=== PATIENT | male | born 1945 | race Caucasian/White ===

== ENCOUNTER 2017-07-26 11:59 | Emergency (ER) | payer MEDICARE, MEDICAID ==
[~2017-07-26] VITALS: Ht 167.6 cm; Wt 63.6 kg
[~2017-07-26 11:59] MED LIST: ALBU18HF2 INH; ALBU8.5H8 IH; ASPI-1265 PO; ATOR20TA66 PO; AZIT250T27 PO; BECL8.7A7 INH; CEFP100T7 PO; FLUT1DIS4 INH; HYDR12.5 PO; LEVE250T4 PO; METH4TAB3 PO; MULT-1179 PO; NYSPWD TP; TRAZ-143 PO
[2017-07-26] MEDS ORDERED: ipratropium/albuterol 3ml nebule NEB ONE (13:15)
[2017-07-26] MEDS ORDERED: albuterol 2.5 MG/3 ML nebule NEB ONE (13:15)
[2017-07-26 14:12] LABS: BASOPHILS % (AUTO) 0.5 % (0-1); EOSINOPHILS # (AUTO) 0.2 X10'3 (0-0.9); EOSINOPHILS % (AUTO) 3.3 % (0-6); HEMATOCRIT 44.3 % (42.0-52.0); LYMPHOCYTES # (AUTO) 0.8 X10'3 (1.1-4.8); LYMPHOCYTES % (AUTO) 14.3 % (21-51); MEAN CORPUSCULAR HEMOGLOBIN 31.3 PG (27.0-31.0); MEAN CORPUSCULAR HGB CONC 33.8 % (33.0-36.5); MEAN CORPUSCULAR VOLUME 92.5 FL (78-98); MEAN PLATELET VOLUME 7.9 FL (7.4-10.4); MONOCYTES # (AUTO) 0.3 X10'3 (0-0.9); MONOCYTES % (AUTO) 5.3 % (2-12); NEUTROPHILS # (AUTO) 4.1 X10'3 (1.8-7.7); NEUTROPHILS % (AUTO) 76.6 % (42-75); PLATELET COUNT 116 X10'3 (140-440); RED BLOOD COUNT 4.79 X10'6 (4.70-6.10); RED CELL DISTRIBUTION WIDTH 14.9 % (11.5-14.5); WHITE BLOOD COUNT 5.3 X10'3 (4.5-11.0)
[2017-07-26 14:26] LABS: ALANINE AMINOTRANSFERASE 25 U/L (12-78); ALBUMIN 3.9 G/DL (3.4-5.0); ALBUMIN/GLOBULIN RATIO 1.3 (1.1-1.5); ALKALINE PHOSPHATASE 90 IU/L (46-116); ANION GAP 9 (8-16); ASPARTATE AMINO TRANSFERASE 28 U/L (10-37); BILIRUBIN,TOTAL 0.6 MG/DL (0.1-1.0); BLOOD UREA NITROGEN 11 MG/DL (7-18); BUN/CREATININE RATIO 28.9 (5.4-32.0); CHLORIDE 99 MMOL/L (99-107); CREATININE 0.38 MG/DL (0.60-1.10); ETHANOL 0.072 GM/DL (0.0-0.010); GLUCOSE 82 MG/DL (70-104); POTASSIUM 3.6 MMOL/L (3.5-5.1); SODIUM 138 MMOL/L (135-145); TOTAL CARBON DIOXIDE 30.3 MMOL/L (24-32); TOTAL PROTEIN 6.8 G/DL (6.4-8.2); eGFR > 90 ML/MIN
[2017-07-26 15:31] VITALS: BP 119/63
== END 2017-07-26 15:32 | disposition home or self-care (01) ==
LOC: ER 12:00
DX: G40.909 Epilepsy, unspecified, not intractable, without status epilepticus (principal); J44.9 Chronic obstructive pulmonary disease, unspecified; G89.29 Other chronic pain; I25.10 Atherosclerotic heart disease of native coronary artery without angina pectoris; I10 Essential (primary) hypertension; F17.200 Nicotine dependence, unspecified, uncomplicated; Z79.82 Long term (current) use of aspirin; Z79.899 Other long term (current) drug therapy
CPT/HCPCS: 36415; 70450; 71010; 80053; 80320; 85025; 94640; 99285; J7030; A4620

== ENCOUNTER 2017-11-16 21:20 | Inpatient (IN) | payer MEDICARE, MEDICAID ==
[~2017-11-16] VITALS: Ht 167.6 cm; Wt 63.0 kg
[2017-11-16] MEDS ORDERED: methylPREDNISolone sod succ 125mg/2ml vial IV ONE (21:35)
[2017-11-16 21:58] LABS: BASOPHILS % (AUTO) 0.1 % (0-1); EOSINOPHILS # (AUTO) 0.4 X10'3 (0-0.9); EOSINOPHILS % (AUTO) 6.3 % (0-6); HEMATOCRIT 43.3 % (42.0-52.0); HEMOGLOBIN 14.9 g/dl (14.0-17.9); LYMPHOCYTES # (AUTO) 0.7 X10'3 (1.1-4.8); LYMPHOCYTES % (AUTO) 10.5 % (21-51); MEAN CORPUSCULAR HEMOGLOBIN 31.6 PG (27.0-31.0); MEAN CORPUSCULAR HGB CONC 34.5 % (33.0-36.5); MEAN CORPUSCULAR VOLUME 91.5 FL (78-98); MEAN PLATELET VOLUME 8.3 FL (7.4-10.4); MONOCYTES # (AUTO) 0.3 X10'3 (0-0.9); MONOCYTES % (AUTO) 5.2 % (2-12); NEUTROPHILS # (AUTO) 4.8 X10'3 (1.8-7.7); NEUTROPHILS % (AUTO) 77.9 % (42-75); PLATELET COUNT 173 X10'3 (140-440); RED BLOOD COUNT 4.73 X10'6 (4.70-6.10); RED CELL DISTRIBUTION WIDTH 14.1 % (11.5-14.5); WHITE BLOOD COUNT 6.2 X10'3 (4.5-11.0)
[2017-11-16] MEDS ORDERED: albuterol 2.5 MG/3 ML nebule CONTNEB PRN (22:00)
[2017-11-16 22:10] LABS: INR 1.1 INR; PARTIAL THROMBOPLASTIN TIME 28 SECONDS (22-32); PROTHROMBIN TIME 11.2 SECONDS (9.0-12.0)
[2017-11-16 22:21] LABS: ALANINE AMINOTRANSFERASE 21 U/L (12-78); ALBUMIN 3.7 G/DL (3.4-5.0); ALBUMIN/GLOBULIN RATIO 1.1 (1.1-1.5); ALKALINE PHOSPHATASE 154 IU/L (46-116); ANION GAP 14 (8-16); BILIRUBIN,TOTAL 1.7 MG/DL (0.1-1.0); BLOOD UREA NITROGEN 10 MG/DL (7-18); BUN/CREATININE RATIO 18.5 (5.4-32.0); CALCIUM 9.2 MG/DL (8.5-10.1); CHLORIDE 93 MMOL/L (99-107); CREATININE 0.54 MG/DL (0.60-1.10); GLUCOSE 79 MG/DL (70-104); MAGNESIUM 1.6 MG/DL (1.5-2.4); SODIUM 133 MMOL/L (135-145); TOTAL CARBON DIOXIDE 25.7 MMOL/L (24-32); TOTAL PROTEIN 7.2 G/DL (6.4-8.2); eGFR > 90 ML/MIN
[2017-11-16 22:25] LABS: POTASSIUM 4.4 MMOL/L (3.5-5.1)
[2017-11-16 22:44] LABS: ASPARTATE AMINO TRANSFERASE 64 U/L (10-37); CREATINE KINASE 118 U/L (39-308)
[2017-11-16] MEDS ORDERED: levoFLOXACIN-Levaquin 500mg/D5 100 ML IV ONE (23:20)
[2017-11-16] MEDS ORDERED: HYDROcodone/acetaminophen 5mg/325mg tablet PO ONE (23:35)
[2017-11-17] MEDS ORDERED: morphine 4 MG/ML inj SYRINge IV PRN ×2 (02:30)
[2017-11-17] MEDS ORDERED: metoclopramide 5 mg/ml inj IV PRN (02:30)
[2017-11-17] MEDS ORDERED: HYDROcodone/acetaminophen 5mg/325mg tablet PO PRN (02:30)
[2017-11-17] MEDS ORDERED: ondansetron/PF 4mg/2ml inj IV PRN (02:30)
[2017-11-17] MEDS ORDERED: HYDROmorphone inj. 0.5 MG/0.5 ML DISP.SYRIN IV PRN ×2 (02:30)
[2017-11-17] MEDS ORDERED: mag hydrox/Alum hydrox/simeth 30ml oral suspension PO PRN (02:30)
[2017-11-17] MEDS ORDERED: magnesium hydroxide 30ml (MOM) UD suspension PO PRN (02:30)
[2017-11-17] MEDS ORDERED: diphenhydrAMINE 25mg capsule PO PRN (02:30)
[2017-11-17] MEDS ORDERED: acetaminophen 325mg tablet PO PRN (02:30)
[2017-11-17] MEDS ORDERED: diphenhydrAMINE 50 mg/ml inj IV PRN (02:30)
[2017-11-17] MEDS ORDERED: acetaminophen 650mg rectal suppository RC PRN (02:30)
[2017-11-17] MEDS ORDERED: traZODone 50mg tablet PO PRN (02:35)
[2017-11-17] MEDS ORDERED: non-formulary drug (Albuterol Sulfate (Ventolin Hfa) 2 PUFFS) INH SCH (02:35)
[2017-11-17] MEDS ORDERED: albuterol 2.5 MG/3 ML nebule NEB PRN (02:50)
[2017-11-17] MEDS: normal saline 1000ml 1,000 ML IV SCH ×2 (03:05→13:31)
[2017-11-17 03:45] LABS: D-DIMER 2.73 MG/L FEU (0-0.50)
[2017-11-17 03:49] LABS: MAGNESIUM 1.7 MG/DL (1.5-2.4); PHOSPHORUS 3.7 MG/DL (2.3-4.5)
[2017-11-17] MEDS ORDERED: dextrose ORAL solution 15 GM/59 ML bottle PO PRN ×2 (05:55)
[2017-11-17] MEDS ORDERED: insulin Lispro (HumaLOG) vial - multi-dose SQ SCH (05:55)
[2017-11-17] MEDS ORDERED: dextrose 50%-water 50ml dispensing syringe IV PRN ×2 (05:55)
[2017-11-17] MEDS ORDERED: MESSAGE TO PHARMACY PO ONE (05:55)
[2017-11-17] MEDS ORDERED: glucagon, human recombinant 1mg kit SUBCUT PRN (05:55)
[2017-11-17 07:27] LABS: HEMOGLOBIN A1C 4.8 % (4.5-6.2)
[2017-11-17] MEDS: levetiracetam 250mg tablet PO SCH ×2 (08:08→20:00)
[2017-11-17] MEDS: heparin, porcine 5000 units/ml vial SQ SCH ×2 (08:08→20:59)
[2017-11-17] MEDS: aspirin 81mg tab.chew PO SCH (08:08)
[2017-11-17] MEDS: atorvastatin 20mg tablet PO SCH (08:08)
[2017-11-17] MEDS: docusate sod 100mg capsule PO SCH ×2 (08:08→20:57)
[2017-11-17] MEDS: methylPREDNISolone sod succ 125mg/2ml vial IV SCH ×2 (08:09→16:36)
[2017-11-17] MEDS: nystatin 15 GM powder TP SCH ×3 (08:09→21:00)
[2017-11-17] MEDS ORDERED: TAMS0.4C32 PO (11:35)
[2017-11-17 13:59] LABS: CLARITY,URINE SLIGHTLY CLOUDY (Clear); COLOR,URINE YELLOW (Yellow); GLUCOSE, URINE NEGATIVE (Neg); KETONES,URINE 40 mg/dl (Neg); LEUKOCYTE ESTERASE ,URINE SMALL (Neg); NITRITES, URINE POSITIVE (Neg); OCCULT BLOOD,URINE SMALL (Neg); PROTEIN,URINE TRACE mg/dl (Neg)
[2017-11-17 14:03] LABS: UA COLLECTION TYPE STRAIGHT CATH
[2017-11-17 14:11] LABS: BACTERIA,URINE 2+ /HPF (Neg); MUCUS STRANDS FEW /LPF (Neg); SQUAMOUS EPITHELIAL CELL,UR FEW /LPF (FEW); WBC,URINE TNTC /HPF (0-4)
[2017-11-17] MEDS ORDERED: ipratropium/albuterol 3ml nebule NEB PRN (14:30)
[2017-11-17] MEDS: ipratropium/albuterol 3ml nebule NEB SCH ×2 (15:30→20:04)
[2017-11-17 16:06] VITALS: BP 100/53
[2017-11-17] MEDS: HYDROcodone/acetaminophen 10/325mg tab PO PRN ×2 (16:36→20:56)
[2017-11-17 19:30] VITALS: BP 132/69
[2017-11-17] MEDS ORDERED: temazepam 15mg capsule PO PRN (21:00)
[2017-11-17] MEDS ORDERED: levoFLOXACIN-Levaquin 500mg/D5 100 ML IV SCH (21:00)
[2017-11-17] MEDS: nicotine 21mg patch - 24 hr TD SCH (22:01)
[2017-11-17] MEDS: insulin glargine (Lantus) pen - multi-dose SQ SCH (22:04)
[2017-11-18] VITALS: BP 130/61
[2017-11-18] MEDS: ipratropium/albuterol 3ml nebule NEB SCH ×6 (00:09→18:57)
[2017-11-18] MEDS: methylPREDNISolone sod succ 125mg/2ml vial IV SCH ×2 (00:11→07:51)
[2017-11-18] MEDS: normal saline 1000ml 1,000 ML IV SCH ×2 (00:12→11:29)
[2017-11-18 05:54] LABS: BASOPHILS % (AUTO) 0 % (0-1); EOSINOPHILS % (AUTO) 0.6 % (0-6); HEMATOCRIT 38.1 % (42.0-52.0); HEMOGLOBIN 12.9 g/dl (14.0-17.9); LYMPHOCYTES # (AUTO) 0.3 X10'3 (1.1-4.8); LYMPHOCYTES % (AUTO) 6.7 % (21-51); MEAN CORPUSCULAR HEMOGLOBIN 31.4 PG (27.0-31.0); MEAN CORPUSCULAR HGB CONC 33.8 % (33.0-36.5); MEAN CORPUSCULAR VOLUME 92.7 FL (78-98); MEAN PLATELET VOLUME 7.6 FL (7.4-10.4); MONOCYTES # (AUTO) 0.2 X10'3 (0-0.9); MONOCYTES % (AUTO) 4.1 % (2-12); NEUTROPHILS # (AUTO) 3.5 X10'3 (1.8-7.7); NEUTROPHILS % (AUTO) 88.6 % (42-75); PLATELET COUNT 129 X10'3 (140-440); RED BLOOD COUNT 4.11 X10'6 (4.70-6.10); RED CELL DISTRIBUTION WIDTH 13.6 % (11.5-14.5); WHITE BLOOD COUNT 3.9 X10'3 (4.5-11.0)
[2017-11-18 06:14] LABS: ALANINE AMINOTRANSFERASE 17 U/L (12-78); ALBUMIN 2.8 G/DL (3.4-5.0); ALKALINE PHOSPHATASE 115 IU/L (46-116); ANION GAP 6 (8-16); ASPARTATE AMINO TRANSFERASE 45 U/L (10-37); BILIRUBIN,TOTAL 0.4 MG/DL (0.1-1.0); BLOOD UREA NITROGEN 15 MG/DL (7-18); BUN/CREATININE RATIO 33.3 (5.4-32.0); CALCIUM 8.6 MG/DL (8.5-10.1); CHLORIDE 100 MMOL/L (99-107); CREATININE 0.45 MG/DL (0.60-1.10); GLUCOSE 155 MG/DL (70-104); POTASSIUM 4.2 MMOL/L (3.5-5.1); SODIUM 134 MMOL/L (135-145); TOTAL CARBON DIOXIDE 28.4 MMOL/L (24-32); TOTAL PROTEIN 5.5 G/DL (6.4-8.2); eGFR > 90 ML/MIN
[2017-11-18] MEDS: levetiracetam 250mg tablet PO SCH ×2 (07:37→19:29)
[2017-11-18] MEDS: atorvastatin 20mg tablet PO SCH (07:51)
[2017-11-18] MEDS: aspirin 81mg tab.chew PO SCH (07:51)
[2017-11-18] MEDS: HYDROcodone/acetaminophen 10/325mg tab PO PRN (07:51)
[2017-11-18] MEDS: docusate sod 100mg capsule PO SCH ×2 (07:51→19:29)
[2017-11-18] MEDS: heparin, porcine 5000 units/ml vial SQ SCH ×2 (07:52→19:29)
[2017-11-18] MEDS: nystatin 15 GM powder TP SCH ×3 (07:52→21:19)
[2017-11-18] MEDS: nicotine 21mg patch - 24 hr TD SCH (07:53)
[2017-11-18 08:00] VITALS: BP 132/64
[2017-11-18] MEDS: predniSONE 20 mg tablet PO SCH (17:32)
[2017-11-18 18:00] VITALS: BP 155/71
[2017-11-18] MEDS: HYDROmorphone 2mg tablet PO PRN ×2 (18:52→23:05)
[2017-11-18] MEDS: lactobacillus rhamnosus 10,000 MMU CELLS/CAPSULE PO SCH (19:29)
[2017-11-18 20:00] VITALS: BP 145/79
[2017-11-18] MEDS: insulin glargine (Lantus) pen - multi-dose SQ SCH (21:00)
[2017-11-19] VITALS: BP 149/68
[2017-11-19] MEDS: HYDROmorphone 2mg tablet PO PRN ×3 (03:36→18:49)
[2017-11-19 06:05] LABS: BASOPHILS % (AUTO) 0.2 % (0-1); EOSINOPHILS % (AUTO) 0.7 % (0-6); HEMATOCRIT 40.5 % (42.0-52.0); HEMOGLOBIN 13.8 g/dl (14.0-17.9); LYMPHOCYTES # (AUTO) 0.3 X10'3 (1.1-4.8); LYMPHOCYTES % (AUTO) 7.4 % (21-51); MEAN CORPUSCULAR HEMOGLOBIN 31.6 PG (27.0-31.0); MEAN PLATELET VOLUME 7.9 FL (7.4-10.4); MONOCYTES # (AUTO) 0.3 X10'3 (0-0.9); MONOCYTES % (AUTO) 7.2 % (2-12); NEUTROPHILS # (AUTO) 3.7 X10'3 (1.8-7.7); NEUTROPHILS % (AUTO) 84.5 % (42-75); PLATELET COUNT 147 X10'3 (140-440); RED BLOOD COUNT 4.36 X10'6 (4.70-6.10); RED CELL DISTRIBUTION WIDTH 13.7 % (11.5-14.5); WHITE BLOOD COUNT 4.4 X10'3 (4.5-11.0)
[2017-11-19 06:34] LABS: ALANINE AMINOTRANSFERASE 25 U/L (12-78); ALBUMIN 2.8 G/DL (3.4-5.0); ALKALINE PHOSPHATASE 113 IU/L (46-116); ANION GAP 9 (8-16); ASPARTATE AMINO TRANSFERASE 53 U/L (10-37); BILIRUBIN,TOTAL 0.3 MG/DL (0.1-1.0); BLOOD UREA NITROGEN 15 MG/DL (7-18); BUN/CREATININE RATIO 35.7 (5.4-32.0); CALCIUM 8.7 MG/DL (8.5-10.1); CHLORIDE 103 MMOL/L (99-107); CREATININE 0.42 MG/DL (0.60-1.10); GLUCOSE 111 MG/DL (70-104); POTASSIUM 3.7 MMOL/L (3.5-5.1); SODIUM 139 MMOL/L (135-145); TOTAL CARBON DIOXIDE 27.4 MMOL/L (24-32); TOTAL PROTEIN 5.5 G/DL (6.4-8.2); eGFR > 90 ML/MIN
[2017-11-19] MEDS: levetiracetam 250mg tablet PO SCH ×2 (06:37→20:00)
[2017-11-19 06:53] VITALS: BP 127/70
[2017-11-19] MEDS: ipratropium/albuterol 3ml nebule NEB SCH ×3 (07:45→15:00)
[2017-11-19] MEDS: heparin, porcine 5000 units/ml vial SQ SCH ×2 (07:52→20:00)
[2017-11-19] MEDS: predniSONE 20 mg tablet PO SCH (07:52)
[2017-11-19] MEDS: docusate sod 100mg capsule PO SCH ×2 (07:52→22:01)
[2017-11-19] MEDS: atorvastatin 20mg tablet PO SCH (07:52)
[2017-11-19] MEDS: aspirin 81mg tab.chew PO SCH (07:52)
[2017-11-19] MEDS: lactobacillus rhamnosus 10,000 MMU CELLS/CAPSULE PO SCH ×2 (07:52→22:01)
[2017-11-19] MEDS: nicotine 21mg patch - 24 hr TD SCH (07:53)
[2017-11-19] MEDS: nystatin 15 GM powder TP SCH ×3 (08:04→21:00)
[2017-11-19] MEDS ORDERED: traZODone 50mg tablet PO PRN (10:20)
[2017-11-19] MEDS ORDERED: LORazepam 0.5 MG tablet PO PRN (10:20)
[2017-11-19 11:00] VITALS: BP 117/65
[2017-11-19] MEDS: levoFLOXACIN 500mg tablet PO SCH (13:36)
[2017-11-19 19:15] VITALS: BP 143/74
[2017-11-19] MEDS: insulin glargine (Lantus) pen - multi-dose SQ SCH (21:00)
[2017-11-19 23:00] VITALS: BP 138/67
[2017-11-20] MEDS: HYDROmorphone 2mg tablet PO PRN (03:52)
[2017-11-20 05:58] LABS: BASOPHILS % (AUTO) 0.8 % (0-1); EOSINOPHILS % (AUTO) 0.5 % (0-6); HEMATOCRIT 41.3 % (42.0-52.0); HEMOGLOBIN 14.2 g/dl (14.0-17.9); LYMPHOCYTES # (AUTO) 0.6 X10'3 (1.1-4.8); LYMPHOCYTES % (AUTO) 14.2 % (21-51); MEAN CORPUSCULAR HEMOGLOBIN 31.9 PG (27.0-31.0); MEAN CORPUSCULAR HGB CONC 34.3 % (33.0-36.5); MEAN PLATELET VOLUME 7.9 FL (7.4-10.4); MONOCYTES # (AUTO) 0.4 X10'3 (0-0.9); NEUTROPHILS # (AUTO) 3.1 X10'3 (1.8-7.7); NEUTROPHILS % (AUTO) 75.5 % (42-75); PLATELET COUNT 136 X10'3 (140-440); RED BLOOD COUNT 4.44 X10'6 (4.70-6.10)
[2017-11-20 06:50] VITALS: BP 126/60
[2017-11-20 06:52] LABS: ALANINE AMINOTRANSFERASE 23 U/L (12-78); ALBUMIN 2.9 G/DL (3.4-5.0); ALKALINE PHOSPHATASE 125 IU/L (46-116); ANION GAP 5 (8-16); ASPARTATE AMINO TRANSFERASE 51 U/L (10-37); BILIRUBIN,TOTAL 0.5 MG/DL (0.1-1.0); BLOOD UREA NITROGEN 11 MG/DL (7-18); CALCIUM 8.7 MG/DL (8.5-10.1); CHLORIDE 99 MMOL/L (99-107); CREATININE 0.44 MG/DL (0.60-1.10); GLUCOSE 90 MG/DL (70-104); POTASSIUM 3.9 MMOL/L (3.5-5.1); SODIUM 135 MMOL/L (135-145); TOTAL CARBON DIOXIDE 30.7 MMOL/L (24-32); TOTAL PROTEIN 5.7 G/DL (6.4-8.2); eGFR > 90 ML/MIN
[2017-11-20] MEDS: docusate sod 100mg capsule PO SCH (07:10)
[2017-11-20] MEDS: nicotine 21mg patch - 24 hr TD SCH (07:10)
[2017-11-20] MEDS: predniSONE 20 mg tablet PO SCH (07:11)
[2017-11-20] MEDS: nystatin 15 GM powder TP SCH ×2 (07:11→12:41)
[2017-11-20] MEDS: lactobacillus rhamnosus 10,000 MMU CELLS/CAPSULE PO SCH (07:11)
[2017-11-20] MEDS: aspirin 81mg tab.chew PO SCH (07:11)
[2017-11-20] MEDS: levetiracetam 250mg tablet PO SCH (07:11)
[2017-11-20] MEDS: heparin, porcine 5000 units/ml vial SQ SCH (07:14)
[2017-11-20] MEDS: atorvastatin 20mg tablet PO SCH (07:14)
[2017-11-20] MEDS: ipratropium/albuterol 3ml nebule NEB SCH ×3 (07:29→15:00)
[2017-11-20] MEDS ORDERED: NICO-687 TD (10:30)
[2017-11-20] MEDS ORDERED: LEVO500T89 PO (10:30)
[2017-11-20] MEDS ORDERED: PRED20TA PO (10:30)
[2017-11-20] MEDS: levoFLOXACIN 500mg tablet PO SCH (10:55)
[2017-11-20 12:02] VITALS: BP 128/55
== END 2017-11-20 16:05 | disposition home health service (06) | DRG 189 ==
LOC: ER 21:21 → ED HOLD 11-17 02:29 → MED 3N 11-17 16:00
PROVIDERS: ADMIT Family Medicine; ATTEND Family Medicine
DX: J96.01 Acute respiratory failure with hypoxia (principal); E11.51 Type 2 diabetes mellitus with diabetic peripheral angiopathy without gangrene; E11.65 Type 2 diabetes mellitus with hyperglycemia; I50.30 Unspecified diastolic (congestive) heart failure; E87.1 Hypo-osmolality and hyponatremia; J44.1 Chronic obstructive pulmonary disease with (acute) exacerbation; J44.0 Chronic obstructive pulmonary disease with (acute) lower respiratory infection; I11.0 Hypertensive heart disease with heart failure; I25.10 Atherosclerotic heart disease of native coronary artery without angina pectoris; J20.9 Acute bronchitis, unspecified; G89.29 Other chronic pain; F17.210 Nicotine dependence, cigarettes, uncomplicated; Z95.1 Presence of aortocoronary bypass graft; Z99.3 Dependence on wheelchair; Z90.49 Acquired absence of other specified parts of digestive tract; Z79.899 Other long term (current) drug therapy
CPT/HCPCS: 36415; 71045; 80053; 81001; 82550; 82948; 83036; 83605; 83735; 83880; 84100; 84484; 85025; 85379; 85610; 85730; 87040; 87070; 87077; 87088; 87186; 93005; 94640; 94760; A4310; A4353; A6212; J1644; J1815; J1956; J2930; J7030; J7512

== ENCOUNTER 2017-11-30 14:49 | Emergency (ER) | payer MEDICARE, MEDICAID ==
[~2017-11-30] VITALS: Ht 152.4 cm; Wt 38.6 kg
[~2017-11-30 14:49] MED LIST changes: -ALBU8.5H8 IH; -ASPI-1265 PO; -ATOR20TA66 PO; +AZIT250T PO; -AZIT250T27 PO; -CEFP100T7 PO; -LEVE250T4 PO; +LEVO500T89 PO; -METH4TAB3 PO; -MULT-1179 PO; +NICO-687 TD; +PRED10TA23 PO; +PRED20TA PO; +TAMS0.4C32 PO
[2017-11-30 15:27] LABS: BASOPHILS % (AUTO) 0.4 % (0-1); EOSINOPHILS # (AUTO) 0.3 X10'3 (0-0.9); EOSINOPHILS % (AUTO) 2.4 % (0-6); HEMATOCRIT 45.6 % (42.0-52.0); HEMOGLOBIN 15.5 g/dl (14.0-17.9); LYMPHOCYTES # (AUTO) 0.7 X10'3 (1.1-4.8); LYMPHOCYTES % (AUTO) 6.6 % (21-51); MEAN CORPUSCULAR HEMOGLOBIN 31.4 PG (27.0-31.0); MEAN CORPUSCULAR HGB CONC 33.9 % (33.0-36.5); MEAN CORPUSCULAR VOLUME 92.4 FL (78-98); MONOCYTES # (AUTO) 0.4 X10'3 (0-0.9); MONOCYTES % (AUTO) 3.6 % (2-12); NEUTROPHILS # (AUTO) 9.4 X10'3 (1.8-7.7); PLATELET COUNT 167 X10'3 (140-440); RED BLOOD COUNT 4.93 X10'6 (4.70-6.10); RED CELL DISTRIBUTION WIDTH 14.1 % (11.5-14.5); WHITE BLOOD COUNT 10.8 X10'3 (4.5-11.0)
[2017-11-30 15:35] LABS: INR 1.1 INR; PARTIAL THROMBOPLASTIN TIME 27 SECONDS (22-32); PROTHROMBIN TIME 11.1 SECONDS (9.0-12.0)
[2017-11-30 15:42] LABS: ALANINE AMINOTRANSFERASE 34 U/L (12-78); ALBUMIN/GLOBULIN RATIO 0.9 (1.1-1.5); ALKALINE PHOSPHATASE 153 IU/L (46-116); ANION GAP 11 (8-16); ASPARTATE AMINO TRANSFERASE 77 U/L (10-37); BILIRUBIN,TOTAL 0.8 MG/DL (0.1-1.0); BLOOD UREA NITROGEN 20 MG/DL (7-18); BUN/CREATININE RATIO 28.2 (5.4-32.0); CALCIUM 8.6 MG/DL (8.5-10.1); CHLORIDE 96 MMOL/L (99-107); CREATININE 0.71 MG/DL (0.60-1.10); GLUCOSE 92 MG/DL (70-104); SODIUM 138 MMOL/L (135-145); TOTAL CARBON DIOXIDE 31.4 MMOL/L (24-32); TOTAL PROTEIN 6.4 G/DL (6.4-8.2); eGFR > 90 ML/MIN
[2017-11-30 15:51] LABS: POTASSIUM 2.9 MMOL/L (3.5-5.1)
[2017-11-30] MEDS ORDERED: potassium Cl 20 mEq SR tablet PO STA (16:58)
[2017-11-30] MEDS ORDERED: ipratropium/albuterol 3ml nebule NEB ONE (17:20)
[2017-12-01] MEDS ORDERED: acetaminophen 325mg tablet PO ONE (06:55)
[2017-12-01 11:35] VITALS: BP 160/89
== END 2017-12-01 12:24 | disposition home or self-care (01) ==
LOC: ER 14:49
DX: J44.9 Chronic obstructive pulmonary disease, unspecified (principal); I25.10 Atherosclerotic heart disease of native coronary artery without angina pectoris; I10 Essential (primary) hypertension; Z98.890 Other specified postprocedural states; G89.29 Other chronic pain; Z79.899 Other long term (current) drug therapy
CPT/HCPCS: 36415; 71045; 80053; 84484; 85025; 85610; 85730; 93005; 94640; 94760; 99285

== ENCOUNTER 2017-12-12 14:08 | Emergency (ER) | payer MEDICARE, MEDICAID ==
[~2017-12-12] VITALS: Ht 167.6 cm; Wt 46.0 kg
[~2017-12-12 14:08] MED LIST changes: -AZIT250T PO; -HYDR12.5 PO; -LEVO500T89 PO; -NYSPWD TP; -PRED10TA23 PO
[2017-12-12] MEDS ORDERED: methylPREDNISolone sod succ 125mg/2ml vial IV ONE (14:20)
[2017-12-12 14:36] VITALS: BP_SYST 134
[2017-12-12 14:45] LABS: BASOPHILS % (AUTO) 0.3 % (0-1); EOSINOPHILS # (AUTO) 0.1 X10'3 (0-0.9); EOSINOPHILS % (AUTO) 1.1 % (0-6); HEMOGLOBIN 16.6 g/dl (14.0-17.9); LYMPHOCYTES # (AUTO) 0.5 X10'3 (1.1-4.8); LYMPHOCYTES % (AUTO) 4.6 % (21-51); MEAN CORPUSCULAR HGB CONC 33.8 % (33.0-36.5); MEAN CORPUSCULAR VOLUME 91.7 FL (78-98); MEAN PLATELET VOLUME 6.5 FL (7.4-10.4); MONOCYTES # (AUTO) 0.3 X10'3 (0-0.9); MONOCYTES % (AUTO) 2.6 % (2-12); NEUTROPHILS # (AUTO) 9.2 X10'3 (1.8-7.7); NEUTROPHILS % (AUTO) 91.4 % (42-75); PLATELET COUNT 265 X10'3 (140-440); RED BLOOD COUNT 5.34 X10'6 (4.70-6.10); RED CELL DISTRIBUTION WIDTH 14.5 % (11.5-14.5); WHITE BLOOD COUNT 10.1 X10'3 (4.5-11.0)
[2017-12-12 15:00] LABS: ALANINE AMINOTRANSFERASE 51 U/L (12-78); ALBUMIN/GLOBULIN RATIO 0.9 (1.1-1.5); ALKALINE PHOSPHATASE 356 IU/L (46-116); ANION GAP 9 (8-16); ASPARTATE AMINO TRANSFERASE 92 U/L (10-37); BILIRUBIN,TOTAL 1.4 MG/DL (0.1-1.0); BLOOD UREA NITROGEN 26 MG/DL (7-18); BUN/CREATININE RATIO 37.7 (5.4-32.0); CALCIUM 9.2 MG/DL (8.5-10.1); CHLORIDE 89 MMOL/L (99-107); CREATININE 0.69 MG/DL (0.60-1.10); GLUCOSE 103 MG/DL (70-104); SODIUM 128 MMOL/L (135-145); TOTAL CARBON DIOXIDE 29.6 MMOL/L (24-32); TOTAL PROTEIN 6.4 G/DL (6.4-8.2); eGFR > 90 ML/MIN
[2017-12-12 15:08] LABS: ETHANOL < 0.010 GM/DL (0.0-0.010)
[2017-12-12 15:10] LABS: POTASSIUM 4.9 MMOL/L (3.5-5.1)
[2017-12-12 15:59] VITALS: BP_DIAS 0
== END 2017-12-12 16:11 | disposition home or self-care (01) ==
LOC: ER 14:09
DX: J44.1 Chronic obstructive pulmonary disease with (acute) exacerbation (principal); I25.10 Atherosclerotic heart disease of native coronary artery without angina pectoris; I10 Essential (primary) hypertension; G89.29 Other chronic pain; F17.200 Nicotine dependence, unspecified, uncomplicated; Z98.61 Coronary angioplasty status; Z98.890 Other specified postprocedural states; Z95.0 Presence of cardiac pacemaker; Z90.49 Acquired absence of other specified parts of digestive tract; Z79.899 Other long term (current) drug therapy
CPT/HCPCS: 36415; 71045; 80053; 80320; 83880; 85025; 93005; 96374; 99285; A4353; J7030

== ENCOUNTER 2017-12-13 20:26 | Emergency (ER) | payer MEDICARE, MEDICAID ==
[~2017-12-13] VITALS: Ht 167.6 cm; Wt 44.0 kg
[2017-12-13] MEDS ORDERED: predniSONE 20 mg tablet PO ONE (20:50)
[2017-12-13] MEDS ORDERED: ipratropium/albuterol 3ml nebule NEB ONE (20:50)
[2017-12-13 21:29] LABS: BASOPHILS # (AUTO) 0.2 X10'3 (0-0.2); BASOPHILS % (AUTO) 1.4 % (0-1); EOSINOPHILS # (AUTO) 0.2 X10'3 (0-0.9); EOSINOPHILS % (AUTO) 1.6 % (0-6); HEMATOCRIT 46.4 % (42.0-52.0); HEMOGLOBIN 15.7 g/dl (14.0-17.9); LYMPHOCYTES # (AUTO) 0.7 X10'3 (1.1-4.8); LYMPHOCYTES % (AUTO) 5.9 % (21-51); MEAN CORPUSCULAR HEMOGLOBIN 31.4 PG (27.0-31.0); MEAN CORPUSCULAR HGB CONC 33.9 % (33.0-36.5); MEAN CORPUSCULAR VOLUME 92.6 FL (78-98); MEAN PLATELET VOLUME 6.1 FL (7.4-10.4); MONOCYTES # (AUTO) 0.7 X10'3 (0-0.9); MONOCYTES % (AUTO) 5.8 % (2-12); NEUTROPHILS # (AUTO) 10.5 X10'3 (1.8-7.7); NEUTROPHILS % (AUTO) 85.3 % (42-75); PLATELET COUNT 265 X10'3 (140-440); RED BLOOD COUNT 5.01 X10'6 (4.70-6.10); WHITE BLOOD COUNT 12.3 X10'3 (4.5-11.0)
[2017-12-13 21:42] LABS: ALANINE AMINOTRANSFERASE 57 U/L (12-78); ALKALINE PHOSPHATASE 369 IU/L (46-116); ANION GAP 9 (8-16); ASPARTATE AMINO TRANSFERASE 93 U/L (10-37); BILIRUBIN,TOTAL 2.4 MG/DL (0.1-1.0); BLOOD UREA NITROGEN 27 MG/DL (7-18); CALCIUM 8.9 MG/DL (8.5-10.1); CHLORIDE 94 MMOL/L (99-107); CREATININE 0.73 MG/DL (0.60-1.10); GLUCOSE 91 MG/DL (70-104); POTASSIUM 4.5 MMOL/L (3.5-5.1); SODIUM 132 MMOL/L (135-145); TOTAL CARBON DIOXIDE 29.1 MMOL/L (24-32); TOTAL PROTEIN 6.1 G/DL (6.4-8.2); eGFR > 90 ML/MIN
[2017-12-14 00:19] VITALS: BP 114/78
== END 2017-12-14 00:21 | disposition home or self-care (01) ==
LOC: ER 20:27
DX: J44.9 Chronic obstructive pulmonary disease, unspecified (principal); F17.200 Nicotine dependence, unspecified, uncomplicated; I25.10 Atherosclerotic heart disease of native coronary artery without angina pectoris; I10 Essential (primary) hypertension; G89.29 Other chronic pain; Z98.61 Coronary angioplasty status; Z90.49 Acquired absence of other specified parts of digestive tract; Z98.890 Other specified postprocedural states; Z79.899 Other long term (current) drug therapy
CPT/HCPCS: 36415; 71046; 80053; 85025; 94640; 94760; 99285; J7512

== ENCOUNTER 2017-12-15 10:23 | Emergency (ER) | payer MEDICARE, MEDICAID ==
[~2017-12-15] VITALS: Ht 167.6 cm; Wt 70.0 kg
[2017-12-15 14:04] VITALS: BP 150/94
== END 2017-12-15 16:58 | disposition home or self-care (01) ==
LOC: ER 10:24
DX: R10.9 Unspecified abdominal pain (principal); R06.02 Shortness of breath; I25.10 Atherosclerotic heart disease of native coronary artery without angina pectoris; I10 Essential (primary) hypertension; J44.9 Chronic obstructive pulmonary disease, unspecified; G89.29 Other chronic pain; Z98.890 Other specified postprocedural states; Z79.899 Other long term (current) drug therapy
CPT/HCPCS: 99284; A4620